=== PATIENT | female | born 1950 | race Caucasian/White ===

== ENCOUNTER 2016-12-31 16:11 | Emergency (ER) | payer OTHER ==
[~2016-12-31 16:11] MED LIST: CEFUROXIME AXE500 MG PO; EVISTA PO; LEVOTHROID SOD0.1 MG PO; LEVOTHYROXINE0.1 M1 PO; PANTOPRAZOLE SO40 MG PO; PROAIR HFA0.09 MG/Ac INH; PROTONIX 40MG T40 MG PO; SERTRALINE HYD100 MG PO; TAMIFLU 75MG75 MG PO; TESSALON PERLE100 MG PO; ZITHROMAX Z-PA250 M1 PO; ZOFRAN4 M1 SL
[2016-12-31] MEDS ORDERED: LEVOTHYROXINE100 MC1 PO (18:08)
[2016-12-31] MEDS ORDERED: SERTRALINE HCL100 MG PO (18:08)
[2016-12-31] MEDS ORDERED: RALOXIFENE HCL60 MG PO (18:08)
[2016-12-31] MEDS ORDERED: PANTOPRAZOLE SO40 M1 PO (18:08)
[2016-12-31] MEDS ORDERED: ACETAMINOPHEN-1 EAC3 PO (18:09)
--- NOTE | 2016-12-31 18:09 | ED NECK/BACK PAIN COMPLAINT ---
History of Present Illness General Chief Complaint: Low Back Pain/Injury Stated Complaint: BACK PAIN Source: patient, family Exam Limitations: no limitations Vital Signs & Intake/Output Vital Signs & Intake/Output Vital Signs Date Time Temp Pulse Resp B/P B/P Pulse O2 O2 Flow FiO2 Mean Ox Delivery Rate 12/31 2205 98.6 72 18 143/61 98 Room Air 12/31 1939 100.4 12/31 1926 100.4 84 18 150/76 96 Room Air 12/31 1744 Room Air 12/31 1741 100.5 12/31 1630 99.0 93 22 139/79 98 ED Intake and Output 01/01 0000 12/31 1200 Intake Total 1000 Output Total Balance 1000 Intake, IV 1000 Patient 126 lb Weight Allergies Coded Allergies: clindamycin (VOMITING 12/31/16) Triage Note: PER PT WOKE UP LAST WEDNESDAY WITH BACK PAIN, PT HAD STAYED IN BED ALL DAY D/T COLD, SAW DR. ROSARIO YESTERDAY AND HAD CT US AND LABS PAIN TOO BAD. TOOK TYLENOL #3 LAST PM. Triage Nurses Notes Reviewed? yes HPI: Patient presents for evaluation of severe back pain and fever. Patient states that she has had intermittent right back pain episodes for weeks. However beginning Wednesday the pain has become constant and severe, described as a tightness in the area of the right lumbar region. Patient had a fever earlier today. She does have a past history of back surgery secondary to chronic back pain but she states this is a different type of pain. She was evaluated by her primary care physician and had an ultrasound and blood work done. There apparently was blood in her urine and some haziness of one of her kidneys on the ultrasound. She was asked by her physician to be evaluated in the emergency department. (NOE NOLEN,DILLON Tom) Reconcile Medications Acetaminophen With Codeine (Acetaminophen-Cod #3 Tablet) 300 MG-30 MG TABLET 1 TAB PO PRN PAIN (Reported) Amoxicillin 875 MG TABLET 1 TAB PO BID sinusitis Levothyroxine Sodium 100 MCG TABLET 1 TAB PO DAILY THYROID (Reported) Pantoprazole Sodium 40 MG TABLET.DR 1 TAB PO DAILY GI (Reported) Raloxifene HCl 60 MG TABLET 1 TAB PO DAILY OSTEOPOROSIS (Reported) Sertraline HCl 100 MG TABLET 0.5 TAB PO DAILY MENTAL HEALTH (Reported) (SREE NOLEN,SADE) Past History Travel History Traveled to [place] past 21 day No Medical History Any Pertinent Medical History? 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 No (NOE NOLEN,DILLON Tom) Review of Systems Review of Systems Constitutional: Reports: no symptoms. Eyes: Reports: no symptoms. Ears, Nose, Throat, Mouth: Reports: no symptoms. Respiratory: Reports: no symptoms. Cardiovascular: Reports: no symptoms. Gastrointestinal/Abdominal: Reports: no symptoms. Musculoskeletal: Reports: see HPI. Skin: Reports: no symptoms. Neurological/Psychological: Reports: no symptoms. All Other Systems: Reviewed and Negative (NOE NOLEN,DILLON Tom) Physical Exam Physical Exam Neck: SEE BELOW Comments: Gen.: Well-nourished, well-developed, no acute respiratory distress. Mild distress secondary to back pain when at rest, severe distress when moving. Head: Normocephalic, atraumatic. Eyes: Normal inspection bilaterally Ears: Normal inspection bilaterally Nose: Normal inspection Throat/mouth : Moist mucosa Neck: Supple, full range of motion, no goiter Heart: Regular rate and rhythm, no murmurs rubs or gallops Lungs: Clear to auscultation bilaterally with normal air entry Chest: Nontender Back: Decreased range of motion secondary to pain, severe tenderness over the right flank without associated ecchymoses and soft tissue swelling or erythema. Mild tenderness over the upper lumbar spine. Abdomen: Soft, nontender, nondistended, normal bowel sounds Extremities: Normal range of motion grossly, equal radial pulses, no cyanosis clubbing or edema Neurologic: Cranial nerves grossly intact, speech is clear Skin: warm and dry Psychiatric: Calm, cooperative, no apparent delusions or hallucinations (NOE NOLEN,DILLON Tom) Progress Differential Diagnosis: herniated disc, myofascial strain, ureterolithiasis, INFECTED KIDNEY STONE Plan of Care: Orders Procedure Date/time Status Add-on Test (ER Only) 12/31 2204 Active C-REACTIVE PROTEIN 12/31 191 Complete BLOOD CULTURE 12/31 1856 Active URINALYSIS 12/31 184 Complete CBC WITHOUT DIFFERENTIAL 01/01 1848 Complete BASIC METABOLIC PANEL 01/01 1848 Complete Current Medications Sig/Renay Start time Last Medication Dose Stop Time Status Admin Albuterol Sulfate 3 ML ONCE ONE 12/31 2214 CAN (Proventil) 01/01 2216 Ipratropium [place] 2.5 ML ONCE ONE 12/31 2214 CAN (Atrovent) 01/01 2216 Laboratory Tests 12/31/162044: Urinalysis LIGHT H, Urine Color YEL, Urine Clarity HAZY H, Urine pH 6.0, Ur Specific [place] 1.010, Urine Protein NEG, Urine Ketones TRACE H, Urine Nitrite NEG, Urine Bilirubin NEG, Urine Urobilinogen 0.2, Ur Leukocyte Esterase NEG, Ur Microscopic SEDIMENT EXAMINED, Urine RBC RARE, Urine WBC RARE, Ur Epithelial Cells MANY H, Urine Bacteria FEW H, Urine Hemoglobin SMALL H, Urine Glucose NEG 12/31/161912: Anion Gap 9, Estimated GFR > 60, BUN/Creatinine Ratio 23.3, Glucose 90, Calcium 8.5, C-Reactive Prot, Quant 6.8 H, CBC w Diff NO MAN DIFF REQ, RBC 3.81 L, MCV 93.7, MCH 31.7 H, RDW 14.0, MPV 7.2 L, Gran % 75.7 H, Lymphocytes % 17.1 L, Monocytes % 6.7, Eosinophils % 0.2, Basophils % 0.3, Absolute Granulocytes 7.2 H, Absolute Lymphocytes 1.6, Absolute Monocytes 0.6, Absolute Eosinophils 0, Absolute Basophils 0, PUBS MCHC 33.8 Microbiology 12/31 2002 BLOOD: Blood Culture - RECD 12/31 1912 BLOOD: Blood Culture - RECD Comments: 12/31/2016 8:15:02 PM patient signed out to Dr. Villegas. (NOE NOLEN,DILLON Tom) Comments: Patient and spouse updated with diagnostics. Patient with continued but improved R flank pain. Toradol ordered. 3D lumbar spine reconstructions of CT performed without significant pathology. Better able to move about but still uncomfortable. Hospitalization discussed and patient declines. Additional analgesia and muscle relaxant ordered. Patient refuses morphine and diazepam. Agrees to flexeril. Still uncomfortable refusing IV analgesia, IV diazepam. Discussed need for IV meds for hospitalization. Prefers to go home. (SREE NOLEN,SADE) Departure Departure Condition: Stable Departure Forms: Customer Survey General Discharge Information (NOE NOLEN,DILLON D) Departure Time of Disposition: 638 Disposition: HOME OR SELF CARE Clinical Impression Primary Impression: Back pain Qualifiers: Back pain location: low back pain Chronicity: acute Back pain laterality: right Sciatica presence: without sciatica Qualified Code: M54.5 - Low back pain Secondary Impressions: Fever Qualifiers: Fever type: unspecified Qualified Code: R50.9 - Fever, unspecified Referrals: FREDDY NOLEN,RAQUEL Parks Call for orthopedic / back follow up ABRAHAM NOLEN,SAMANTHA Ingram (PCP/Family) Prescriptions: Current Visit Scripts Amoxicillin 1 TAB PO BID #20 TAB (SREE NOLEN,SADE)
[2016-12-31 19:19] LABS: ABSOLUTE BASOPHIL COUNT 0 /CUMM (0.0-0.2); ABSOLUTE EOSINOPHIL COUNT 0 /CUMM (0.0-0.7); ABSOLUTE GRANULOCYTE CT 7.2 /CUMM (1.4-6.5); ABSOLUTE LYMPH COUNT 1.6 /CUMM (1.2-3.4); ABSOLUTE MONOCYTE COUNT 0.6 /CUMM (0.10-0.60); BASOPHIL % 0.3 % (0.0-2.0); EOSINOPHIL % 0.2 % (0-5); GRANULOCYTE % 75.7 % (42.2-75.2); HEMATOCRIT 35.7 % (37-47); MEAN CORPUSCULAR HGB 31.7 PG (27.0-31.0); MEAN CORPUSCULAR HGB CONC 33.8 G/DL (33.0-37.0); MEAN CORPUSCULAR VOLUME 93.7 FL (81.0-99.0); MEAN PLATELET VOLUME 7.2 FL (7.4-10.4); PLATELET COUNT 193 /CUMM (130-400); RED BLOOD CELL CT 3.81 /CUMM (4.20-5.40); WHITE BLOOD CELL COUNT 9.5 /CUMM (4.8-10.8)
--- NOTE | 2016-12-31 20:43 | CT SCAN REPORT ---
EXAMINATION: CT ABDOMEN AND PELVIS WITHOUT CONTRAST CLINICAL INFORMATION: Right flank pain. Fever. Hematuria. COMPARISON: None TECHNIQUE: Multidetector volumetric imaging was performed from the superior aspect of the liver through the pubic symphysis. Sagittal and coronal reformatted images were obtained on the technologist's workstation. DLP: 239.65 mGy-cm FINDINGS: LUNG BASES: The visualized lung bases are unremarkable. LIVER, GALLBLADDER, AND BILIARY TREE: The liver is normal in size, shape, and attenuation. No focal hepatic lesion or biliary ductal dilatation is present. The gallbladder is unremarkable with no evidence of radiopaque gallstones, gallbladder wall thickening, or obvious pericholecystic inflammatory changes. Extra hepatic CBD measures 7 mm. No calcified stone within the bile ducts. PANCREAS: Unremarkable. SPLEEN: Unremarkable. ADRENAL GLANDS: Unremarkable. KIDNEYS AND URETERS: The kidneys are normal in size, shape, and attenuation. No hydronephrosis, hydroureter, or calculi seen. No perinephric stranding. There are multiple small calcifications in the pelvis that are phleboliths. BLADDER: Unremarkable. 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 No acute change of the bowel. No bowel obstruction. No bowel wall thickening or edema. Small volume of scattered stool in colon. The appendix is normal. There is no inflammation of the mesentery. Small bowel loops are unremarkable. ABDOMINAL WALL: No significant hernia is appreciated. LYMPH NODES: Normal. VASCULAR: Unremarkable. PELVIC VISCERA: Uterus is anteverted. No adnexal abnormality. OSSEOUS STRUCTURES: Mild degenerative spondylosis of spine with disc height narrowing and endplate spurs and facet joint arthrosis. IMPRESSION: No acute abnormality. Normal CT of the kidneys, ureter and bladder. The appendix is normal.
[2017-01-01] MEDS ORDERED: AMOXICILLIN875 M1 PO (07:01)
[2017-01-01 07:09] VITALS: BP 147/80
== END 2017-01-01 07:35 ==
LOC: ERH 16:11
PROVIDERS: Emergency Medicine
DX: M54.5 Low back pain (principal); R50.9 Fever, unspecified; E03.9 Hypothyroidism, unspecified
CPT/HCPCS: 74176; 81001; 87040; 96361; 96374; 96375; J0131; J0696; J1885; J3360

== ENCOUNTER 2018-04-14 10:21 | Emergency (ER) | payer OTHER ==
[~2018-04-14] VITALS: Ht 147.3 cm; Wt 5.0 kg
[~2018-04-14 10:21] MED LIST changes: +ACETAMINOPHEN-1 EAC3 PO; +AMOXICILLIN875 M1 PO; +LEVOTHYROXINE100 MC1 PO; +PANTOPRAZOLE SO40 M1 PO; +RALOXIFENE HCL60 MG PO; +SERTRALINE HCL100 MG PO
[2018-04-14] MEDS ORDERED: GABAPENTIN100 M2 PO (14:28)
[2018-04-14] MEDS ORDERED: XANAX0.25 M1 PO (14:29)
[2018-04-14 14:30] LABS: ABSOLUTE BASOPHIL COUNT 0 /CUMM (0.0-0.2); ABSOLUTE EOSINOPHIL COUNT 0 /CUMM (0.0-0.7); ABSOLUTE GRANULOCYTE CT 8.4 /CUMM (1.4-6.5); ABSOLUTE MONOCYTE COUNT 0.9 /CUMM (0.10-0.60); BASOPHIL % 0.5 % (0.0-2.0); EOSINOPHIL % 0.1 % (0-5); GRANULOCYTE % 81.8 % (42.2-75.2); HEMATOCRIT 31.9 % (37-47); MEAN CORPUSCULAR HGB 27.7 PG (27.0-31.0); MEAN CORPUSCULAR HGB CONC 33.1 G/DL (33.0-37.0); MEAN CORPUSCULAR VOLUME 83.6 FL (81.0-99.0); MEAN PLATELET VOLUME 7.1 FL (7.4-10.4); PLATELET COUNT 492 /CUMM (130-400); RBC DISTRIBUTION WIDTH 15.7 % (11.5-14.5); RED BLOOD CELL CT 3.82 /CUMM (4.20-5.40); WHITE BLOOD CELL COUNT 10.2 /CUMM (4.8-10.8)
--- NOTE | 2018-04-14 15:06 | ED GENERAL ADULT ---
History of Present Illness General Chief Complaint: General Adult Stated Complaint: JOINT PAIN, REDUCED MOBILITY Source: patient, family Exam Limitations: no limitations Vital Signs & Intake/Output Vital Signs & Intake/Output Vital Signs Date Time Temp Pulse Resp B/P B/P Pulse O2 O2 Flow FiO2 Mean Ox Delivery Rate 04/14 1534 98.4 72 18 130/60 98 Room Air 04/14 1336 Room Air 04/14 1043 96.6 85 18 115/64 98 Room Air Room Air Allergies Coded Allergies: amoxicillin (Intermediate, VOMITING 04/14/18) clindamycin (VOMITING 04/14/18) Reconcile Medications Acetaminophen With Codeine (Acetaminophen-Cod #3 Tablet) 300 MG-30 MG TABLET 1 TAB PO PRN PAIN (Reported) Alprazolam (Xanax) 0.25 MG TABLET 1 TAB PO BIDP PRN ANXIETY (Reported) Gabapentin 100 MG CAPSULE 2 CAP PO TID PAIN (Reported) Levothyroxine Sodium 100 MCG TABLET 1 TAB PO DAILY THYROID (Reported) Pantoprazole Sodium 40 MG TABLET.DR 1 TAB PO DAILY GI (Reported) Sertraline HCl 100 MG TABLET 0.5 TAB PO DAILY MENTAL HEALTH (Reported) Triage Note: PT TO ED WITH MULTIPLE C/O PAIN, FALL IN SEP C/O LEFT WRIST PAIN, SUPPOSED TO HAVE CARPAL TUNNEL SURGERY NEXT WEEK, ALSO C/O ALL OVER BACK PAIN, AND RIGHT FOOT AND ANKLE SWELLING, DENIES FALL OR INJURY TO THE AREA. Triage Nurses Notes Reviewed? yes HPI: 68-year-old female with chronic low back pain presents with right ankle pain and swelling since this morning. Denies trauma. Denies trauma, fever, chills, vaginal discharge, and GI symptoms. Over the past 5 months patient has experienced migratory arthralgias, for which is seen her primary care physician and has had negative Lyme titers. Past History Travel History Traveled to [place] past 21 day No Medical History Any Pertinent Medical History? 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 No Review of Systems Review of Systems Constitutional: Reports: no symptoms, see HPI. EENTM: Reports: no symptoms. Respiratory: Reports: no symptoms. Cardiovascular: Reports: no symptoms. GI: Reports: no symptoms. Genitourinary: Reports: no symptoms. Musculoskeletal: Reports: no symptoms. Skin: Reports: no symptoms. Neurological/Psychological: Reports: no symptoms. Hematologic/Endocrine: Reports: no symptoms. Immunologic/Allergic: Reports: no symptoms. All Other Systems: Reviewed and Negative Physical Exam Physical Exam General Appearance: well developed/nourished, no apparent distress, comfortable Comments: Gen.: Well-nourished, well-developed, no acute respiratory distress. Head: Normocephalic, atraumatic. Eyes: Normal inspection bilaterally Ears: Normal inspection bilaterally Nose: Normal inspection Throat/mouth : Moist mucosa Neck: Supple, full range of motion, no goiter Heart: Regular rate and rhythm, no murmurs rubs or gallops Lungs: Clear to auscultation bilaterally with normal air entry Chest: Nontender Back: Normal range of motion Abdomen: Soft, nontender, nondistended, normal bowel sounds Extremities: Normal range of motion grossly, equal radial pulses, no cyanosis clubbing or edema. Positive for right ankle swelling erythema that is warm to the touch. All other joints within normal limits. Neurologic: Cranial nerves grossly intact, speech is clear Skin: warm and dry Psychiatric: Calm, cooperative, no apparent delusions or hallucinations Core Measures ACS in differential dx? No CVA/TIA Diagnosis: No Sepsis Present: No Sepsis Focused Exam Completed? No Progress Differential Diagnoses I considered the following diagnoses in my evaluation of the patient: Infectious arthralgias versus rheumatoid versus trauma. Plan of Care: Orders Procedure Date/time Status [facility] SED RATE 04/14 1447 Active Add-on Test (ER Only) 04/14 1438 Active C-REACTIVE PROTEIN 04/14 1339 Complete COMPREHENSIVE METABOLIC PANEL 04/14 1339 Complete CREATINE PHOSPHOKINASE 04/14 1339 Complete CBC WITHOUT DIFFERENTIAL 04/14 1339 Complete Laboratory Tests 04/14/18 1447[facility] 04/14/18 1428: CBC w Diff NO MAN DIFF REQ, RBC 3.82 L, MCV 83.6, MCH 27.7, MCHC 33.1, RDW 15.7 H, MPV 7.1 L, Gran % 81.8 H, Lymphocytes % 9.3 L, Monocytes % 8.3, Eosinophils % 0.1, Basophils % 0.5, Absolute Granulocytes 8.4 H, Absolute Lymphocytes 1.0 L, Absolute Monocytes 0.9 H, Absolute Eosinophils 0, Absolute Basophils 0 04/14/18 1420: Anion Gap 11, Estimated GFR > 60, BUN/Creatinine Ratio 20.0, Glucose 105 H, Calcium 8.9, Total Bilirubin 0.9, AST 35, ALT 41, Alkaline Phosphatase 94, Creatine Kinase 30, C-Reactive Prot, Quant > 9.0 H, Total Protein 6.8, Albumin 3.6, Globulin 3.2, Albumin/Globulin Ratio 1.1, Lyme Disease Antibody Cancelled 04/14/18 1413: ESR [place] Cancelled 04/14/18 1339: Lyme Disease Screen Pending Initial ED EKG: none Departure Departure Disposition: HOME OR SELF CARE Condition: Stable Clinical Impression Primary Impression: Ankle pain, right Qualifiers: Chronicity: acute Qualified Code: M25.571 - Pain in right ankle and joints of right foot Referrals: Compa NOLEN,Soren Ingram (PCP/Family) Moo Bowens MD Additional Instructions: Follow-up with rheumatology for migratory polyarthralgias. Departure Forms: Customer Survey General Discharge Information Comments Please note that there might be incidental findings in your evaluation that are unrelated to the current emergency department visit. Please notify your primary care doctor about this emergency department visit in order to obtain and review all of the testing performed so that these incidental findings can be monitored as needed. If you had an x-ray performed, please understand that some fractures may not be seen on the initial set of x-rays. If your symptoms persist you might need a repeat set of x-rays to check for such a fracture. If you had a laceration evaluated, please understand that foreign bodies such as glass or wood may not be visible to the naked eye or on plain x-rays. If the wound becomes red, swollen, increasingly more painful or if there is any drainage from the wound, please have it reevaluated by a physician for the possibility of a retained foreign body. If you're unable to follow up as outlined in the discharge instructions please return to the emergency department. Critical Care Note Critical Care Note Critical Care Time: non-applicable
[2018-04-14 15:34] VITALS: BP 130/60
[2018-04-14] MEDS ORDERED: DOXYCYCLINE HY100 M2 PO (16:12)
[2018-04-14] MEDS ORDERED: DUEXIS 800-26.1 EACH PO (16:12)
== END 2018-04-14 16:25 ==
LOC: ERH 10:21
PROVIDERS: Physician Assistant Medical
DX: M25.571 Pain in right ankle and joints of right foot (principal)
CPT/HCPCS: 86618; 87476; 96372; J1885